=== PATIENT | male | born 2000 | race Caucasian/White ===

== ENCOUNTER 2024-11-17 10:22 | Emergency (ER) | payer OTHER, SELFPAY ==
[2024-11-17 10:27] VITALS: BP 161/93; PULSE 89; RESP 20; TEMP 37.4; O2SAT 100
--- OUTSIDE RECORDS SUMMARY | 2024-11-17 10:27 | XMS_ITS | Referral Summary ---
Author Organization [facility] Address [address] [place] [address] Care Team Providers Care Court Transcriber Name Role Phone Eusebia Lee MD Primary Care Provider [phone] Source Comments [facility],non-owned Affiliates and Associated Physician Practices is amultiple site organization consisting of ambulatory clinics and hospital sitesin [place], [place], [place] and [place]. This disclosure is being madepursuant to the Care Everywhere program and may not contain all information available regarding this patient. Last updated 18.[facility] [employer] Allergies No known active allergies Medications Be aware that medications may not be up to date on this document. Always verify current medications with the patient. No known medications Social History Tobacco Use Types Packs/Day Years Used Date Smoking Tobacco: Never Assessed Sex and Gender Information Value Date Recorded Sex Assigned at Not on file Gender Identity Not on file Sexual Orientation Not on file Plan of Treatment Not on file Care Teams Court Transcriber Relationship Specialty Start Date End Date Eusebia Lee MD [address] [place] [address] PCP - General 08/08/11
--- OUTSIDE RECORDS SUMMARY | 2024-11-17 10:27 | XMS_ITS | Clinical Summary ---
Author Organization [facility] Address [address] [place] [address] Care Team Providers Care Barrel Assembly Inspector Name Role Phone Eusebia Lee MD Primary Care Provider Source Comments [facility],non-owned Affiliates and Associated Physician Practices is amultiple site organization consisting of ambulatory clinics and hospital sitesin [place] and [place]. This disclosure is being madepursuant to the Care Everywhere program and may not contain all information available regarding this patient. Last updated 18.[facility] Allergies No known active allergies Medications Be [...] Orientation Not on file Plan of Treatment Health Maintenance Due Date Last Done Comments HIV SCREENING 2014 HPV VACCINE (1 - Male 3-dose series) 2014 HEPATITIS C SCREENING 07/15/2017 DTAP/TDAP/TD VACCINES (1 - Tdap) 2018 HEPATITIS B VACCINE (1 of 3 - 19+ 3-dose series) 2018 COVID-19 VACCINE (1 - 2023-2 5 season) 2024 INFLUENZA VACCINE (#1) 2024 DEPRESSION SCREENING 10/09/2024 ZOSTER VACCINE (1 of 2) 2049 HIB VACCINE Aged Out No longer eligi ble based on patient's age to complete this topic MENINGOCOCCAL (Group B) VACCINE Aged Out No longer eligible based on patient's age to complete this topic MENINGOCOCCAL VACCINE Aged Out No sg ariela eligible based on patient's age to complete this topic PNEUMOCOCCAL VACCINE Aged Out No long er eligible based on patient's age to complete this topic Care Teams Barrel Assembly Inspector Relationship Specialty Start Date End Date Eusebia Lee MD [address] [place] [address] PCP - General 08/08/11
--- OUTSIDE RECORDS SUMMARY | 2024-11-17 10:27 | XMS_ITS | Continuity of Care Document ---
Author Organization [facility] Address [address] [place] [address] Phone Care Team Providers Care General Agent Name Role Phone Simeon Rodriguez DO Unavailable Unavailable Advance Directives Directive Yes / No Effective Date File Name No Information Encounters Encounter Description Practice Location Reason(s) For Visit Diagnoses Date Provider Providers Copied on Encounter [facility], [address] [place], [place], [id number], tel:[phone] [facility] No Information Jennifer Kevin. [address] [place], [address], . tel: [phone] Family History Family Member Type Diagnosis Age At Onset No Information Payers Payer name Insurance type Covered democrat ID Authoriza titoño(s) [facility] [id number] [facility] [id number] Social History Type Description Quantity Date Captured Comments Sex Male Smoking Status No Information Chief Complaint And Reason For Visit No Information Reason For Referral Reason For Referral No Information History Of Present Illness Encounter Date Complaint History Of Prese nt Illness No Information Functional Status Date Functional Assessmen t No Information Instructions Date Instruction Additional Infor mation No Information Assessments Type Assessment Date No Information Patient Care Teams Name Effective Dates (start - stop) Status Members No Information
--- OUTSIDE RECORDS SUMMARY | 2024-11-17 10:27 | XMS_ITS | Data Portability ---
Author Organization Chika MILLER Address [address] [place] [address] Assessment No assessment recorded. Plan of Treatment Reminders Order Date Submit Date Provider Last Modified By Organization Details Last Modified Time Details Appointments None recorded. Lab HbA1c (hemoglobi n A1c), blood 2015 016 KAIT CHAU, Padma sal Adan, [facility] [address], [place], [address], 6 06:36:38 CBC w/ auto diff 2015 016 [facility] [address], [place], [address], 6 06:36:36 CMP, serum or plasma 2015 016 [facility], [facility] [address], [place], [address], 6 06:36:37 lipid panel, serum 2015 016 KAIT CHAU, Padma sal Ad[address], [address], [place], [address], 6 06:36:37 vitamin D3, 25-hydroxy , serum 2015 016 [facility]IT [facility], [facility], [address], [place], [address], 6 06:36:38 HIV (1+O+2) Ab, serum 2015 016 gerri [facility], [address], [address], [place], [address], 7 14:26:25 vitamin D, 25-hydroxy , total, serum 2017 018 KAIT [facility], [address], [address], [place], [address], 8 06:36:39 HbA1c (hemoglobi n A1c), blood 2017 018 KAIT [facility], [address], [address], [place], [address], 8 06:36:39 lipid panel, serum 2017 018 KAIT [facility], [address], [address], [place], [address], 8 06:36:39 vitamin D, 25-hydroxy , total, serum 2018 019 KAIT [facility], [address], [address], [place], [address], 9 13:13:30 CMP, serum or plasma 2018 019 KAIT [facility], [address], [address], [place], [address], 9 13:13:29 CBC 2018 019 KAIT [facility], [address], [address], [place], [address], 9 13:13:29 TSH, ultra-sens itive, serum 2018 019 [facility], [address] [facility], [address] [facility], [place], [address], 9 13:13:30 lipid panel, serum 2018 019 [facility], [address] [facility], [address], [place], [address], 9 13:13:28 Referral None recorded. Procedures None recorded. Surgeries None recorded. Imaging None recorded. Medication Orders Zithromax Z-Kenneth 250 mg tablet [address] [facility], [address] [place] [address], [address], 9 09:21:21 Flonase Allergy Relief 50 mcg/actuat ion nasal spray,susp ension [address] [facility], [address] [place] [address], [address], 9 09:21:20 Patient TargetsNo targets recorded. Patient Instructions Encounter Date Encounter Id Patient Instructions Last Modified By Organization Details Last Modified Time 09/07/2016 [id number] when your child IS overweight: care instructions [email or web address] Not available 09/07/2016 16:42:00 your child WHO I S overweight: care instructions [email or web address] Not available 09/07/2016 16:41:59 patient health questionnaire modified for adolescents* [id number] Not available 09/24/2016 04:32:50 well child visit 15-17 years [id number] Not available 09/24/2016 04:32:31 11/08/2017 [id number] when your child IS overweight: care instructions csuhre Not available 11/08/2017 17:02:24 your child WHO I S overweight: care instructions csuhre Not available 11/08/2017 17:02:24 11/15/2018 [id number] upper respirator y infection (cold): care instructions ltardino Not available 11/15/2018 09:21:11 Pt said he will check BP periodically and if remains elevated will notify office. States usually high with white coat syndrome. ltardino Not available 11/15/2018 13:14:48 Drink plenty of fluids, Get plenty of rest. Take Tylenol as dir. OTC ltardino Not available 11/15/2018 13:13:23 11/29/2018 [id number] elevated blood pressure: care instructions ltardino Not available 11/29/2018 13:40:54 Reason for Referral None Reported. Results Created Date Observation Date Name Description Value Unit Range Abnormal Flag Note LastModifiedBy Organization Detail LastModifiedTime 10/07/20 16 10/08/2016 CBC w/ auto diff WBC 7.1 x10e3 /uL 3.4-10 .8 Not Available [facility] ([facility]) [address] [place], [address], 10/08/2016 06:36:36 10/07/20 16 10/08/2016 CBC w/ auto diff RBC 4.97 x10e6 /uL 4.14-5 .80 Not Available [facility] ([facility]) [address] [place], [address], 10/08/2016 06:36:36 10/07/20 16 10/08/2016 CBC w/ auto diff hemoglobin 15.6 g/dL 12.6-1 7.7 Not Available [facility] ([facility]) [address] [place], [address], 10/08/2016 06:36:36 10/07/20 16 10/08/2016 CBC w/ auto diff hematocrit 44.6 % 37.5-5 1.0 Not Available [facility] ([facility]) [address] [place], [address], 10/08/2016 06:36:36 10/07/20 16 10/08/2016 CBC w/ auto diff MCV 90 fL 79-97 Not Available [facility] ([facility]) [address] [place], [address], 10/08/2016 06:36:36 10/07/20 16 10/08/2016 CBC w/ auto diff MCH 31.4 pg 26.6-3 3.0 Not Available [facility] ([facility]) [address] [facility], [place], [address], 10/08/2016 06:36:36 10/07/20 16 10/08/2016 CBC w/ auto diff MCHC 35.0 g/dL 31.5-3 5.7 Not Available [facility] ([facility]) [address] [facility], [place], [address], 10/08/2016 06:36:36 10/07/20 16 10/08/2016 CBC w/ auto diff RDW 12.7 % 12.3-1 5.4 Not Available [facility] ([facility]) [address] [facility], [place], [address], 10/08/2016 06:36:36 10/07/20 16 10/08/2016 CBC w/ auto diff platelets 291 x10e3 /uL 150-37 9 Not Available [facility] ([facility]) [address] [facility], [place], [address], 10/08/2016 06:36:36 10/07/20 16 10/08/2016 CBC w/ auto diff neutrophils 60 % Not Available [facility] ([facility]) [address] [facility], [place], [address], 10/08/2016 06:36:36 10/07/20 16 10/08/2016 CBC w/ auto diff lymphs 32 % Not Available [facility] ([facility]) [address] [facility], [place], [address], 10/08/2016 06:36:36 10/07/20 16 10/08/2016 CBC w/ auto diff monocytes 6 % Not Available [facility] ([facility]) [address] [facility], [place], [address], 10/08/2016 06:36:36 10/07/20 16 10/08/2016 CBC w/ auto diff eos 2 % Not Available [facility] ([facility]) [address] [place], [address], 10/08/2016 06:36:36 10/07/20 16 10/08/2016 CBC w/ auto diff basos 0 % Not Available [facility] ([facility]) [address] [place], [address], 10/08/2016 06:36:36 10/07/20 16 10/08/2016 CBC w/ auto diff immature cells SWIM INSTRUCTOR Not Available [facility] ([facility]) [address] [place], [address], 10/08/2016 06:36:36 10/07/20 16 10/08/2016 CBC w/ auto diff neutrophils (absolute) 4.2 x10e3 /uL 1.4-7. 0 Not Available [facility] ([facility]) [address] [place], [address], 10/08/2016 06:36:36 10/07/20 16 10/08/2016 CBC w/ auto diff lymphs (absolute) 2.3 x10e3 /uL 0.7-3. 1 Not Available [facility] ([facility]) [address] [place], [address], 10/08/2016 06:36:36 10/07/20 16 10/08/2016 CBC w/ auto diff monocytes(ab solute) 0.4 x10e3 /uL 0.1-0. 9 Not Available [facility] ([facility]) [address] [place] [address], [address], 10/08/2016 06:36:36 10/07/20 16 10/08/2016 CBC w/ auto diff eos (absolute) 0.2 x10e3 /uL 0.0-0. 4 Not Available [facility] ([facility]) [address] [place], [address], 10/08/2016 06:36:36 10/07/20 16 10/08/2016 CBC w/ auto diff baso (absolute) 0.0 x10e3 /uL 0.0-0. 3 Not Available [facility] ([facility]) [address] [facility], [place], [address], 10/08/2016 06:36:36 10/07/20 16 10/08/2016 CBC w/ auto diff immature granulocytes 0 % Not Available [facility] ([facility]) [address] [facility], [place], [address], 10/08/2016 06:36:36 10/07/20 16 10/08/2016 CBC w/ auto diff immature grans (abs) 0.0 x10e3 /uL 0.0-0. 1 Not Available [facility] ([facility]) [address] [place], [address], 10/08/2016 06:36:36 10/07/20 16 10/08/2016 CBC w/ auto diff NRBC SWIM INSTRUCTOR Not Available [facility] ([facility]) [address] [place], [address], 10/08/2016 06:36:36 10/07/20 16 10/08/2016 CBC w/ auto diff hematology comments: SWIM INSTRUCTOR Not Available [facility] ([facility]) [address] [place], [address], 10/08/2016 06:36:36 10/07/20 16 10/08/2016 CMP, serum or plasm a glucose, serum 98 mg/dL 65-99 Not Available [facility] ([facility]) [address] [place], [address], 10/08/2016 06:36:37 10/07/20 16 10/08/2016 CMP, serum or plasm a BUN 18 mg/dL 5-18 Not Available [facility] ([facility]) [address] [place], [address], 10/08/2016 06:36:37 10/07/20 16 10/08/2016 CMP, serum or plasm a creatinine, serum 0.84 mg/dL 0.76-1 .27 Not Available [facility] ([facility]) [address] [facility] [place], [address], 10/08/2016 06:36:37 10/07/20 16 10/08/2016 CMP, serum or plasm a BUN/creatini ne ratio 21 9-27 Not Available [facility] ([facility]) [address] [facility] [place], [address], 10/08/2016 06:36:37 10/07/20 16 10/08/2016 CMP, serum or plasm a sodium, serum 142 mmol/ L 134-14 4 Not Available [facility] ([facility]) [address] [facility] [place], [address], 10/08/2016 06:36:37 10/07/20 16 10/08/2016 CMP, serum or plasm a potassium, serum 4.7 mmol/ L 3.5-5. 2 Not Available [facility] ([facility]) [address] [facility] [place], [address], 10/08/2016 06:36:37 10/07/20 16 10/08/2016 CMP, serum or plasm a chloride, serum 100 mmol/ L 96-106 Not Available [facility] ([facility]) [address] [place], [address], 10/08/2016 06:36:37 10/07/20 16 10/08/2016 CMP, serum or plasm a calcium, serum 9.7 mg/dL 8.9-10 .4 Not Available [facility] ([facility]) [address] [place] [address], [address], 10/08/2016 06:36:37 10/07/20 16 10/08/2016 CMP, serum or plasm a protein, total, serum 6.6 g/dL 6.0-8. 5 Not Available [facility] ([facility]) [address] [place], [address], 10/08/2016 06:36:37 10/07/20 16 10/08/2016 CMP, serum or plasm a albumin, serum 4.5 g/dL 3.5-5. 5 Not Available [facility] ([facility]) [address] [place], [address], 10/08/2016 06:36:37 10/07/20 16 10/08/2016 CMP, serum or plasm a globulin, total 2.1 g/dL 1.5-4. 5 Not Available [facility] ([facility]) [address] [place], [address], 10/08/2016 06:36:37 10/07/20 16 10/08/2016 CMP, serum or plasm a A/G ratio 2.1 1.1-2. 5 Not Available [facility] ([facility]) [address] [place], [address], 10/08/2016 06:36:37 10/07/20 16 10/08/2016 CMP, serum or plasm a bilirubin, total 0.6 mg/dL 0.0-1. 2 Not Available [facility] ([facility]) [address] [place], [address], 10/08/2016 06:36:37 10/07/20 16 10/08/2016 CMP, serum or plasm a alkaline phosphatase, S 123 IU/L 61-146 Not Available [facility] [address] [facility], [address], 10/08/2016 06:36:37 10/07/20 16 10/08/2016 CMP, serum or plasm a AST (SGOT) 38 IU/L 0-40 Not Available [facility] ([facility] [address] [facility] [place], [address], 10/08/2016 06:36:37 10/07/20 16 10/08/2016 lipid panel , serum cholesterol, total 159 mg/dL 100-16 9 Not Available [facility] ([facility]) [address], [place], [address], 10/08/2016 06:36:37 10/07/20 16 10/08/2016 lipid panel , serum triglyceride s 138 mg/dL 0-89 above high normal Not Available [facility] ([facility]) [address], [place], [address], 10/08/2016 06:36:37 10/07/20 16 10/08/2016 lipid panel , serum HDL cholesterol 41 mg/dL >39 Not Available [facility] ([facility]) [address] [facility], [place], [address], 10/08/2016 06:36:37 10/07/20 16 10/08/2016 lipid panel , serum VLDL cholesterol abhishek 28 mg/dL 5-40 Not Available [facility] ([facility]) [address] [facility], [place], [address], 10/08/2016 06:36:37 10/07/20 16 10/08/2016 lipid panel , serum LDL cholesterol calc 90 mg/dL 0-109 Not Available [facility] ([facility]) [address] [facility], [place], [address], 10/08/2016 06:36:37 10/07/20 16 10/08/2016 lipid panel , serum comment: SWIM INSTRUCTOR Not Available [facility] ([facility]) [address] [facility], [place], [address], 10/08/2016 06:36:37 10/07/20 16 10/08/2016 lipid panel , serum LDL/HDL ratio 2.2 ratio _unit s 0.0-3. 6 LDL/H DL RATIO MEN WOMEN 1/2 AVG.R ISK 1.0 1.5 AVG.R ISK 3.6 3.2 2X AVG.R ISK 6.2 5.0 3X AVG.R ISK 8.0 6.1 Not Available [facility] ([facility]) [address] [facility], [place], [address], 10/08/2016 06:36:37 10/07/20 16 10/08/2016 HbA1c (hemo globi n A1c), blood hemoglobin A1C 5.3 % 4.8-5. 6 PRE-D IABET ES: 5.7 - 6.4 DIABE GALEN: >6.4 GLYCE LAVERNE CONTR OL FOR ADULT S WITH DIABE GALEN: <7.0 Not Available [facility] ([facility]) [address] [facility], [place], [address], 10/08/2016 06:36:38 10/07/20 16 10/08/2016 vitam in D3, 25-hy droxy , serum vitamin D, 25-hydroxy 22.2 NG/mL 30.0-1 00.0 below low normal VITAM IN D DEFIC IENCY HAS BEEN DEFIN ED BY THE INSTI TUTE OF MEDIC INE AND AN ENDOC RINE SOCIE TY PRACT ICE GUIDE LINE A LEVEL OF SERUM 25-OH VITAM IN D LESS THAN 20 NG/ML (1,2) . THE ENDOC RINE SOCIE TY WENT ON TO FURTH ER DEFIN E VITAM IN D INSUF FICIE NCY A LEVEL BETWE EN 21 AND 29 NG/ML (2). 1. IOM (INST ITUTE OF MEDIC INE). 2009. DIETA RY REFER ENCE INTAK ES FOR CALCI UM AND D. BLANCA RAMOS DC: THE NATIO NAL ACADE [facility] PRESS . 2. LAVINIA Cleaning MF, JESSY LUNDBERG [place], JEFF OFF-F ERRAR I HERNANDEZ, ET AL. EVALU ATION , TREAT MENT, AND PREVE NTION OF VITAM IN D DEFIC IENCY : AN ENDOC RINE SOCIE TY CLINI ABHISHEK PRACT ICE GUIDE LINE. JCEM. 2010; 96(7) :1911 -30. Not Available [facility] ([facility]) [address] [facility], [place], [address], 10/08/2016 06:36:38 10/07/20 16 10/08/2016 HIV 1+2 AB + HIV 1 p24 Ag, quali tativ e immun oassa y, serum HIV screen 4TH generation wrfx NON REACTI VE non reacti ve Not Available [facility] ([facility]) [address] [facility], [place], [address], 10/08/2016 06:36:39 12/12/19 18 12/12/2017 lipid panel , serum cholesterol, total 176 mg/dL 100-16 9 above high normal Not Available [facility] ([facility]) [address] [place], [address], 12/12/2017 06:36:38 12/12/19 18 12/12/2017 lipid panel , serum triglyceride s 168 mg/dL 0-89 above high normal Not Available [facility] ([facility]) [address] [place], [address], 12/12/2017 06:36:38 12/12/19 18 12/12/2017 lipid panel , serum HDL cholesterol 39 mg/dL >39 below low normal Not Available [facility] ([facility]) [address] [place], [address], 12/12/2017 06:36:38 12/12/19 18 12/12/2017 lipid panel , serum LDL chol. (direct) 108 mg/dL 0-109 Not Available [facility] ([facility]) [address] [place], [address], 12/12/2017 06:36:38 12/12/19 18 12/12/2017 lipid panel , serum comment: SWIM INSTRUCTOR Not Available [facility] ([facility]) [address] [place], [address], 12/12/2017 06:36:38 12/12/19 18 12/12/2017 HbA1c (hemo globi n A1c), blood hemoglobin A1C 5.1 % 4.8-5. 6 Pre-d iabet es: 5.7 - 6.4 Diabe galen: >6.4 Glyce laverne contr ol for adult s with diabe galen: <7.0 Not Available [facility] ([facility]) [address] [facility], [place], [address], 12/12/2017 06:36:39 12/12/19 18 12/12/2017 HbA1c (hemo globi n A1c), blood estim. avg glu (EAG) 100 mg/dL Not Available [facility] ([facility]) [address] [facility], [place], [address], 12/12/2017 06:36:39 12/12/19 18 12/12/2017 vitam in D, 25-hy droxy , total , serum vitamin D, 25-hydroxy 21.2 NG/mL 30.0-1 00.0 below low normal Vitam in D defic iency has been defin ed by the Insti tute of Medic ine and an Endoc rine Socie ty pract ice guide line as a level of serum 25-OH vitam in D less than 20 ng/mL (1,2) . The Endoc rine Socie ty went on to furth er defin e vitam in D insuf ficie ncy as a level betwe en 21 and 29 ng/mL (2). 1. IOM (Inst itute of Medic ine). 2009. Dieta ry refer ence intak es for calci um and D. Blanca ramos DC: [facility] Press . 2. Lavinia cleaning MF, Jessy lundberg [place], Jeff off-F errar i HERNANDEZ, et al. Evalu ation , treat ment, and preve ntion of vitam in D defic iency : an Endoc rine Socie ty clini abhishek pract ice guide line. JCEM. 2010; 96(7) :1911 -30. Not Available [facility] ([facility]) [address] [facility], [place], [address], 12/12/2017 06:36:39 11/15/19 19 11/16/2018 lipid panel , serum cholesterol, total 207 mg/dL 100-16 9 above high normal Not Available [facility] ([facility]) [address], [place], [address], 11/16/2018 13:13:28 11/15/1911/16/2018 lipid panel , serum triglyceride s 209 mg/dL 0-89 above high normal Not Available [facility] ([facility]) [address], [place], [address], 11/16/2018 13:13:28 11/15/19 19 11/16/2018 lipid panel , serum LDL chol. (direct) 159 mg/dL 0-109 above high normal Not Available [facility] ([facility]) [address] [place], [address], 11/16/2018 13:13:28 11/15/1911/16/2018 lipid panel , serum HDL cholesterol 37 mg/dL >39 below low normal Not Available [facility] ([facility]) [address], [place], [address], 11/16/2018 13:13:28 11/15/1911/16/2018 lipid panel , serum VLDL cholesterol abhishek 42 mg/dL 5-40 above high normal Not Available [facility] ([facility]) [address], [place], [address], 11/16/2018 13:13:28 11/15/1911/16/2018 lipid panel , serum LDL cholesterol calc 128 mg/dL 0-109 above high normal Not Available [facility] ([facility]) [address], [place], [address], 11/16/2018 13:13:28 11/15/1911/16/2018 lipid panel , serum comment: SWIM INSTRUCTOR Not Available [facility] ([facility]) [address] [place], [address], 11/16/2018 13:13:28 11/15/1911/16/2018 lipid panel , serum LDL/HDL ratio 3.5 ratio 0.0-3. 6 LDL/H DL Ratio Men Women 1/2 Avg.R isk 1.0 1.5 Avg.R isk 3.6 3.2 2X Avg.R isk 6.2 5.0 3X Avg.R isk 8.0 6.1 Not Available [facility] ([facility]) [address] [place], [address], 11/16/2018 13:13:28 11/15/19 19 11/16/2018 CMP, serum or plasm a glucose 96 mg/dL 65-99 Not Available [facility] ([facility]) [address] [place], [address], 11/16/2018 13:13:29 11/15/19 19 11/16/2018 CMP, serum or plasm a BUN 18 mg/dL 6-20 Not Available [facility] ([facility]) [address] [place], [address], 11/16/2018 13:13:29 11/15/1911/16/2018 CMP, serum or plasm a creatinine 0.88 mg/dL 0.76-1 .27 Not Available [facility] ([facility]) [address] [place], [address], 11/16/2018 13:13:29 11/15/19 19 11/16/2018 CMP, serum or plasm a eGFR if nonafricn AM 125 mL/mi n/1.7 3 >59 Not Available [facility] ([facility]) [address] [place], [address], 11/16/2018 13:13:29 11/15/19 19 11/16/2018 CMP, serum or plasm a eGFR if africn AM 144 mL/mi n/1.7 3 >59 Not Available [facility] ([facility]) [address] [place] [address], [address], 11/16/2018 13:13:29 11/15/19 19 11/16/2018 CMP, serum or plasm a BUN/creatini ne ratio 20 9-20 Not Available [facility] ([facility]) [address] [facility] [place], [address], 11/16/2018 13:13:29 11/15/1911/16/2018 CMP, serum or plasm a sodium 141 mmol/ L 134-14 4 Not Available [facility] ([facility]) [address] [facility] [place], [address], 11/16/2018 13:13:29 11/15/1911/16/2018 CMP, serum or plasm a potassium 4.6 mmol/ L 3.5-5. 2 Not Available [facility] ([facility]) [address] [facility] [place], [address], 11/16/2018 13:13:29 11/15/1911/16/2018 CMP, serum or plasm a chloride 101 mmol/ L 96-106 Not Available [facility] ([facility]) [address] [place], [address], 11/16/2018 13:13:29 11/15/1911/16/2018 CMP, serum or plasm a carbon dioxide, total 23 mmol/ L 20-29 Not Available [facility] ([facility]) [address] [place], [address], 11/16/2018 13:13:29 11/15/1911/16/2018 CMP, serum or plasm a calcium 9.9 mg/dL 8.7-10 .2 Not Available [facility] ([facility]) [address] [place], [address], 11/16/2018 13:13:29 11/15/1911/16/2018 CMP, serum or plasm a protein, total 7.1 g/dL 6.0-8. 5 Not Available [facility] ([facility]) [address] [place], [address], 11/16/2018 13:13:29 11/15/19 19 11/16/2018 CMP, serum or plasm a albumin 4.7 g/dL 3.5-5. 5 Not Available [facility] ([facility]) [address] [facility] [place], [address], 11/16/2018 13:13:29 11/15/19 19 11/16/2018 CMP, serum or plasm a globulin, total 2.4 g/dL 1.5-4. 5 Not Available [facility] ([facility]) [address] [facility] [place], [address], 11/16/2018 13:13:29 11/15/1911/16/2018 CMP, serum or plasm a A/G ratio 2.0 1.2-2. 2 Not Available [facility] ([facility]) [address] [facility] [place], [address], 11/16/2018 13:13:29 11/15/1911/16/2018 CMP, serum or plasm a bilirubin, total 0.6 mg/dL 0.0-1. 2 Not Available [facility] ([facility]) [address] [facility] [place], [address], 11/16/2018 13:13:29 11/15/1911/16/2018 CMP, serum or plasm a alkaline phosphatase 82 IU/L 39-117 Not Available [facility] ([facility]) [address] [facility] [place], [address], 11/16/2018 13:13:29 11/15/1911/16/2018 CMP, serum or plasm a AST (SGOT) 83 IU/L 0-40 above high normal Not Available [facility] ([facility]) [address] [facility] [place], [address], 11/16/2018 13:13:29 11/15/19 19 11/16/2018 CMP, serum or plasm a ALT (SGPT) 149 IU/L 0-44 above high normal Not Available [facility] ([facility]) [address] [facility], [place], [address], 11/16/2018 13:13:29 11/15/19 19 11/16/2018 CBC WBC 9.2 x10e3 /uL 3.4-10 .8 Not Available [facility] ([facility]) [address] [facility], [place], [address], 11/16/2018 13:13:29 11/15/19 19 11/16/2018 CBC RBC 5.38 x10e6 /uL 4.14-5 .80 Not Available [facility] ([facility]) [address] [facility] [place], [address], 11/16/2018 13:13:29 11/15/19 19 11/16/2018 CBC hemoglobin 16.6 g/dL 13.0-1 7.7 Not Available [facility] ([facility]) [address] [facility] [place], [address], 11/16/2018 13:13:29 11/15/19 19 11/16/2018 CBC hematocrit 49.0 % 37.5-5 1.0 Not Available [facility] ([facility]) [address] [facility] [place], [address], 11/16/2018 13:13:29 11/15/19 19 11/16/2018 CBC MCV 91 fL 79-97 Not Available [facility] ([facility]) [address] [facility] [place], [address], 11/16/2018 13:13:29 11/15/19 19 11/16/2018 CBC MCH 30.9 pg 26.6-3 3.0 Not Available [facility] ([facility]) [address] [facility] [place] [place], [address], 11/16/2018 13:13:29 11/15/19 19 11/16/2018 CBC MCHC 33.9 g/dL 31.5-3 5.7 Not Available [facility] ([facility]) [address] [place], [address], 11/16/2018 13:13:29 11/15/19 19 11/16/2018 CBC RDW 12.7 % 12.3-1 5.4 Not Available [facility] ([facility]) [address] [facility], [place], [address], 11/16/2018 13:13:29 11/15/19 19 11/16/2018 CBC NRBC SWIM INSTRUCTOR Not Available [facility] ([facility]) [address] [facility], [place], [address], 11/16/2018 13:13:29 11/15/19 19 11/16/2018 TSH, ultra -sens itive , serum TSH 1.620 uIU/m L 0.450- 4.500 Not Available [facility] ([facility]) [address] [facility], [place], [address], 11/16/2018 13:13:30 11/15/19 19 11/16/2018 vitam in D, 25-hy droxy , total , serum vitamin D, 25-hydroxy 18.4 NG/mL 30.0-1 00.0 below low normal Vitam in D defic iency has been defin ed by the Insti tute of Medic ine and an Endoc rine Socie ty pract ice guide line as a level of serum 25-OH vitam in D less than 20 ng/mL (1,2) . The Endoc rine Socie ty went on to furth er defin e vitam in D insuf ficie ncy as a level betwe en 21 and 29 ng/mL (2). 1. IOM (Inst itute of Medic ine). 2009. Dieta ry refer ence chris es for calci um and D. Blanca ramos [place]: The [facility] Press . 2. Lavinia cleaning MF, Jessy lundberg [place], Jeff off-F errar i HERNANDEZ, et al. Evalu ation , treat ment, and preve ntion of vitam in D defic iency : an Endoc rine Socie ty clini abhishek pract ice guide line. JCEM. 2010; 96(7) :1911 -30. Not Available [facility] ([facility]) [address] [facility] [place], [address], 11/16/2018 13:13:30 01/16/2001/16/2019 CMP, serum or plasm a glucose 95 mg/dL 65-99 Not Available [facility] ([facility]) [address] [facility] [place], [address], 01/16/2019 06:21:07 01/16/2001/16/2019 CMP, serum or plasm a BUN 17 mg/dL 6-20 Not Available [facility] ([facility]) [address] [facility] [place], [address], 01/16/2019 06:21:07 01/16/2001/16/2019 CMP, serum or plasm a creatinine 0.85 mg/dL 0.76-1 .27 Not Available [facility] ([facility]) [address] [facility] [place], [address], 01/16/2019 06:21:07 01/16/2001/16/2019 CMP, serum or plasm a eGFR if nonafricn AM 126 mL/mi n/1.7 3 >59 Not Available [facility] ([facility]) [address] [facility] [place], [address], 01/16/2019 06:21:07 01/16/2001/16/2019 CMP, serum or plasm a eGFR if africn AM 146 mL/mi n/1.7 3 >59 Not Available [facility] ([facility]) [address] [facility] [place], [address], 01/16/2019 06:21:07 01/16/2001/16/2019 CMP, serum or plasm a BUN/creatini ne ratio 20 9-20 Not Available [facility] ([facility]) [address] [facility] [place], [address], 01/16/2019 06:21:07 01/16/20 19 01/16/2019 CMP, serum or plasm a sodium 143 mmol/ L 134-14 4 Not Available [facility] ([facility]) [address] [place], [address], 01/16/2019 06:21:07 01/16/2001/16/2019 CMP, serum or plasm a potassium 4.6 mmol/ L 3.5-5. 2 Not Available [facility] ([facility]) [address] [place], [address], 01/16/2019 06:21:07 01/16/2001/16/2019 CMP, serum or plasm a chloride 106 mmol/ L 96-106 Not Available [facility] ([facility]) [address] [place], [address], 01/16/2019 06:21:07 01/16/2001/16/2019 CMP, serum or plasm a carbon dioxide, total 22 mmol/ L 20-29 Not Available [facility] ([facility]) [address] [place], [address], 01/16/2019 06:21:07 01/16/2001/16/2019 CMP, serum or plasm a calcium 9.8 mg/dL 8.7-10 .2 Not Available [facility] ([facility]) [address] [place], [address], 01/16/2019 06:21:07 01/16/2001/16/2019 CMP, serum or plasm a protein, total 7.0 g/dL 6.0-8. 5 Not Available [facility] ([facility]) [address] [place], [address], 01/16/2019 06:21:07 01/16/2001/16/2019 CMP, serum or plasm a albumin 4.7 g/dL 3.5-5. 5 Not Available [facility] ([facility]) [address] [place], [address], 01/16/2019 06:21:07 01/16/2001/16/2019 CMP, serum or plasm a globulin, total 2.3 g/dL 1.5-4. 5 Not Available [facility] ([facility]) [address] [facility] [place], [address], 01/16/2019 06:21:07 01/16/2001/16/2019 CMP, serum or plasm a A/G ratio 2.0 1.2-2. 2 Not Available [facility] ([facility]) [address] [facility] [place], [address], 01/16/2019 06:21:07 01/16/2001/16/2019 CMP, serum or plasm a bilirubin, total 0.4 mg/dL 0.0-1. 2 Not Available [facility] ([facility]) [address] [place], [address], 01/16/2019 06:21:07 01/16/2001/16/2019 CMP, serum or plasm a alkaline phosphatase 88 IU/L 39-117 Not Available [facility]) [address] [place], [address], 01/16/2019 06:21:07 01/16/2001/16/2019 CMP, serum or plasm a AST (SGOT) 23 IU/L 0-40 Not Available [facility] ([facility]) [address] [place], [address], 01/16/2019 06:21:07 01/16/2001/16/2019 CMP, serum or plasm a ALT (SGPT) 37 IU/L 0-44 Not Available [facility] ([facility]) [address] [place], [address], 01/16/2019 06:21:07 Result Notes None recorded. Problems Name Problem SNOMED Code Status Onset Date Resolution Date Notes Provider Name and Address Organization Details Recorded Time Vitamin D deficiency 08030606 Active 2018 Ashlynemile Garcia MA gavi, [place] - [facility] 09:00:22 Cellulitis 641377527 Active Ashlyn KAEL Garcia gavi, [place] - [facility] 9 09:00:22 Allergic rhinitis 83734582 Active Ashlyn Salgadofortroc KAEL gavi, [facility] 9 09:00:22 Mild intermittent asthma 020968225 Active Ashlyn SalgadoforthKAEL gavi, [place] - [facility] 9 09:00:22 Problem Notes None recorded. Procedures Surgical History Date Name Laterality Status Provider Name and Address Organization Details Recorded Time Circumcision completed Mai Viramontes [place] - [facility] 08/19/2015 16:16:50 Tonsillectomy completed Ashlyn Garcia [place] - [facility] 11/15/2018 09:05:52 Imaging Results None recorded. Procedure Notes None recorded. Medical Equipment None Reported. Allergies No known drug allergies Medications Name Sig Start Date Stop Date Status Note LastModified by Organization Details LastModified Time clotrimazol e 10 mg marilyn Take 1 tablet 5 times a day by oral route. 2018 active Not Available Not Available Not Avai lable nystatin 100,000 unit/mL oral suspension Take 5 mL 4 times a day by oral route. 11/19 completed Not Available Not Available Not Available cetirizine 10 mg tablet Take 1 tablet every day by oral route at bedtime. 11/15 completed buy otc Not Available Not Available Not Available benzoyl peroxide 5 % topical gel APPLY TOPICALLY ONCE DAILY IN THE MORNING 2013 active Not Available Not Available Not Avai lable Zithromax Z-Kenneth 250 mg tablet TAKE 2 TABLETS (500 MG) BY ORAL ROUTE ONCE DAILY FOR 1 DAY THEN 1 TABLET (250 MG) BY ORAL ROUTE ONCE DAILY FOR 4 DAYS 2018 active Not Available Not Available Not Avai lable Bactroban 2 % topical ointment Apply 1 applicati on 4 times a day by topical route. 2014 active Not Available Not Available Not Avai lable albuterol sulfate HFA 90 mcg/actuati on aerosol inhaler Inhale 2 puff via spacer Q 4 HR PRN FOR WHEEZING by inhalatio n route. 11/15 completed Not Available Not Available Not Available Vitamin D2 1,250 mcg (50,000 unit) capsule Take 1 capsule every week by oral route. 2018 active Not Available Not Available Not Avai lable Vitamin D3 25 mcg (1,000 unit) capsule Take 1 capsule every day by oral route. 2018 active Not Available Not Available Not Avai lable ibuprofen 11/15 completed Not Available Not Available Not Available Flonase Allergy Relief 50 mcg/actuati on nasal spray,suspe nsion [place] 1 spray every day by intranasa l route. 2018 active Not Available Not Available Not Avai lable Vitals Date Recorded Body height Body mass index (BMI) Body weight Heart rate Respiratory rate Body temperature Systolic blood pressure Diastolic blood pressure Provider Name and Address Organization Details Last Updated DateTime 8 180.98 cm 35.6 kg/m2 939363. 64 g 92 /min 20 /min 98.6 [degF] 152 mm[Hg] 72 mm[Hg] Mai Viramontes MA [facility] 8 16:45:26 Date Recorded Body height Body temperature Provider N lula and Address Organization Details Last Updated DateTime 12/11/2017 180.98 cm 98.5 [degF] Jolie Tinajero MA [facility] 12/11/2017 09:09:02 Date Recorded Body height Body mass index (BMI) Percentile per age and sex Body mass index (BMI) Body weight Heart rate Respiratory rate Body temperature Systolic blood pressure Diastolic blood pressure Provider Name and Address Organization Details Last Updated DateTime 9 180.98 cm 99 % 39.5 kg/m2 768756. 26 g 72 /min 16 /min 97.7 [degF] 164 mm[Hg] 100 mm[Hg] Ashlyn Garcia MA [facility] 9 09:03:09 Date Recorded Systolic blood pressure Diastolic blood pressure Provider Name and Address Organization Details Last Updated DateTime 11/15/2018 154 mm[Hg] 98 mm[Hg] Marcial Yi [facility] 11/15/2018 09:18:57 Date Recorded Body height Body mass index (BMI) Body mass index (BMI) Percentile per age and sex Body weight Heart rate Respiratory rate Body temperature Systolic blood pressure Diastolic blood pressure Provider Name and Address Organization Details Last Updated DateTime 9 180.98 cm 38.6 kg/m2 99 % 699433. 56 g 72 /min 16 /min 98 [degF] 142 mm[Hg] 72 mm[Hg] Ashlyn Garcia MA [facility] 9 08:58:57 Date Recorded Body height Body weight Body mass index (BMI) Heart rate Respiratory rate Body temperature Systolic blood pressure Diastolic blood pressure Provider Name and Address Organization Details Last Updated DateTime 6 180.34 cm 359632. 16 g 35.4 kg/m2 80 /min 20 /min 99.3 [degF] 138 mm[Hg] 72 mm[Hg] Mai Viramontes MA [facility] 6 16:22:32 Social History Question Answer Notes LastModified by Organizat ion Details LastModified Time Tobacco Smoking Status Never Smoker Jolie Tinajero MA [facility], [facility] 07/03/2015 15:43:04 Animal Exposure? Yes 2 Dogs [email or web address] Information not available 08/19/2015 Do You Wear A Helmet When Biking? No Information not available 07/03/2015 Are You Or Have You Been Involved With Bullying? No Information not available 07/03/2015 What Is Your Level Of Caffeine Consumption? Occasional Information not available 07/03/2015 What Type Of Foreign Languages Department Chair Do You Use? None Information not available 07/03/2015 What Type Of Diet Are You Following? REGULAR Information not available 07/03/2015 Have There Been Any Changes To Your Family Or Social Situation? No Information not available 07/03/2015 Are There Any Guns Present In Your Home? No Information not available 07/03/2015 What Is Your Home Situation? Both Parents Mom, Dad, And Brother [email or web address] Information not available 08/19/2015 Do You Use Insect Repellent Routinely? Yes Information not available 07/03/2015 Car Seat Type Or Seat Belt? Seat Belt Information not available 07/03/2015 Parent Involvement? Both Parents Involved Information not available 07/03/2015 Riding In Car Front Seat? Yes Information not available 07/03/2015 What Was The Date Of Your Most Recent Tobacco Screening? 11/29/2018 Information not available 05/02/2019 What Is Your Parents' Marital Status? [email or web address] Information not available 08/19/2015 Pool Exposure No Information not available 07/03/2015 What Is The Name Of Your School? [employer] Information not available 07/03/2015 Do You Have Any Siblings? 1 Brother Information not available 07/03/2015 Do You Have Smoke And Carbon Monoxide Detectors In Your Home? Yes Information not available 07/03/2015 Are You Passively Exposed To Smoke? No [email or web address] Information not available 08/19/2015 What Types Of Sporting Activities Do You Participate In? Football, Baseball Information not available 11/08/2017 Do You Use Sunscreen Routinely? Yes Information not available 07/03/2015 Year In School 12 [email or web address] Informatio n not available 11/08/2017 Sex: Unknown Functional Status Question Answer Note LastModified by Organization D etails LastModified Time What is your exercise level? Heavy [email or web address] Information not available 08/19/2015 Mental Status None recorded. Family History Relationship Description Onset Age of this Age Resolved Age Notes LastModified by Organization Details LastModified Time Paternal Grandmother Diabetes mellitus [email or web address] Not available 08/09 16:16:50 Maternal Grandmother Lupus erythematosu s [email or web address] Not available 08/11 16:17:56 Maternal Grandmother Rheumatoid arthritis [email or web address] Not available 08/11 16:18:17 Maternal Grandmother Family history of malignant neoplasm [email or web address] Not available 08/11 16:18:40 Father No current problems or disability [email or web address] Not available 11/08 16:42:23 Father Diabetes mellitus [email or web address] Not available 2018 09:05:08 Mother No current problems or disability [email or web address] Not available 11/08 16:42:23 Medical History Condition Response Blood Diseases N Depression N Developmental or Behavioral Disorders N Premature N Anxiety Disorder N Muscle, Joint, or Bone Problems N Vision or Eye Problems N Head Injury/Concussion N Cancer N ADHD N Bladder or Kidney Problems N Headaches N Ear or Hearing Problems N Thyroid Problems N Skin Problems N Anemia N Constipation N Diabetes N Bedwetting N Seizures/Epilepsy N Heart Problems/Murmur N Asthma N Allergies N Chicken Pox N Autism Spectrum Disorder (ASD) N Immunizations Vaccine Type Date Status Note Provider Nam e and Address Organization Details Recorded Time HPV9 6 completed Not Available [facility] 10/26/2019 02:44:54 Influenza, split virus, quadrivalent, PF 6 completed Not Available [facility] 10/26/2019 02:49:47 Hep B, adolescent or pediatric 0 completed [place]AEL [place] [facility] 11/29/2018 09:00:30 IPV 0 [place] [facility] 11/29/2018 09:00:30 Hib, unspecified formulation 1 completed [place] [facility] 11/29/2018 09:00:30 Tdap 1 [place] [facility] 11/29/2018 09:00:30 DTaP 0 [place] [facility] 11/29/2018 09:00:30 pneumococcal conjugate PCV 7 0 [place] [facility] 11/29/2018 09:00:30 IPV 1 [place] [facility] 11/29/2018 09:00:29 DTaP 0 [place] [facility] 11/29/2018 09:00:30 pneumococcal conjugate PCV 7 0 [place] [facility] 11/29/2018 09:00:30 DTaP 9 [place] [facility] 11/29/2018 09:00:30 IPV 4 completed Ashlyn Radha[place] [facility] 11/29/2018 09:00:30 meningococcal MCV4, unspecified formulation 1 completed Ashlyn Radha[place] [facility] 11/29/2018 09:00:30 HPV, quadrivalent 4 completed Ashlyn Radha[place] [facility] 11/29/2018 09:00:29 varicella 1 completed Ashlyn Radha[place] [facility] 11/29/2018 09:00:30 Hib, unspecified formulation 0 completed Ashlyn Radha[place] [facility] 11/29/2018 09:00:30 DTaP 1 completed Ashlyn RadhaKAEL [place] [facility] 11/29/2018 09:00:30 Hep A, ped/adol, 2 dose 1 completed Ashlyn [place] [facility] 11/29/2018 09:00:30 Hep B, adolescent or pediatric 1 completed Ashlyn RadhaKAEL [place] [facility] 11/29/2018 09:00:30 MMR 0 completed Ashlynemile [place] [facility] 11/29/2018 09:00:30 MMR 4 completed Ashlyn [place]haKAEL [place] [facility] 11/29/2018 09:00:30 IPV 9 completed Ashlyn Radha[place] [facility] 11/29/2018 09:00:30 Hep A, ped/adol, 2 dose 8 completed Ashlyn Radha[place] [facility] 11/29/2018 09:00:30 DTaP 4 completed Ashlyn Radha[place] [facility] 11/29/2018 09:00:30 varicella 0 completed Ashlyn Radha[place] [facility] 11/29/2018 09:00:30 Hep B, adolescent or pediatric 0 completed Ashlynemile [place] [facility] 11/29/2018 09:00:30 pneumococcal conjugate PCV 7 1 completed Ashlyn [place]AEL [place] [facility] 11/29/2018 09:00:30 Hib, unspecified formulation 9 completed Ashlyn SalgadoKAEL [place] [facility] 11/29/2018 09:00:30 meningococcal B, OMV 8 completed Not Available [facility] 10/26/2019 02:34:49 meningococcal B, OMV 8 completed Not Available [facility] 10/26/2019 02:35:21 HPV9 5 completed Not Available [facility] 10/26/2019 02:43:38 Meningococcal MCV4O 5 completed Not Available [facility] 10/26/2019 02:31:36 Influenza, split virus, quadrivalent, PF 5 completed Not Available [facility] 10/26/2019 02:32:08 Past Encounters Encounter ID Performer Location Encounter Start Date Encounter Closed Date Diagnosis/Indication Diagnosis SNOMED-CT Code Diagnosis ICD10 Code Diagnosis Note [id number] DANIS Hernandez (Peds) [address] [place] [address] 07/03/2015 15:20:36 07/03/2015 17:43:16 Cellulitis [id number] Keep area clean. Start bactroban tid [id number] Eusebia Cole (Peds) [address] [place] [address] 08/19/2015 15:53:02 08/19/2015 17:49:22 Well child 152632476 Z00.121 balanced diet and exercise 1 hr, sleep 10 hr, good hygiene, accident prevention , testicle self exam dental hygiene, see dentist q 6-12m. Allergic rhinitis 966742 04 J30.9 Mild inter mittent asthma 128087943 J45.20 albuterol prn, instruct how to use it, keep diary of usage, contact if not better, or frequent wheezes smoke free, no perfumes PEFR 450, asthma action plan [id number] Eusebia Cole (Peds) [address] [place] [address] 09/07/2016 15:26:24 09/09/2016 17:08:30 Well child 972679937 Z00.129 balanced diet and exercise 1 hr, sleep 10 hr, good hygiene, accident prevention , testicle self exam dental hygiene, see dentist q 6-12m. Obesity 669371361 E66.9 discuss about diet and exercise, sleep 10 hr, good hand hygiene, no biting fingernail s, no weight gain, drink more water, milk 2 cups/d 5-2-1-0 message discussed [id number] MD Yeni Weinsteinhalto (Peds) [address] [place] [address] 11/08/2017 16:31:55 11/08/2017 17:05:50 Well child 917605297 Z00.129 discussed routine adolescent carediscus sed safety and school performanc ediscussed healthy weight Obesity 516602648 E66.9 discussed better weight management with focusing on dietary control (pt exercises regularly) Hypertensive disorder 38 530121 I10 elevated systolic BP. discussed dietary management . will check BP once a week at school. RTC 1 month with results and for recheck with weight. [id number] KAEL Macias (Peds) [address] [place] [address] 12/11/2017 08:27:08 12/11/2017 14:41:47 Active or passive immunization 614537754 Z23 [id number] Marcial Kelly 14 IM [address] [facility] [place] [address] 11/15/2018 08:41:38 11/15/2018 16:27:06 Upper respiratory infection 91882562 J06.9 Adult heal th examination 066468547 Z00.00 Vitamin D deficiency 347 46386 E55.9 [id number] Marcial Kelly 14 IM [address] [facility] [place] [address] 11/29/2018 08:43:07 11/30/2018 10:38:36 Elevated blood-pressure reading without diagnosis of hypertension 904874887 R03.0 BP improved Health Concerns Section Related Observation LastModified by Organization Detai ls LastModified Time None Recorded Concern Status LastModified by Organization Details LastModified Time None Recorded Advance Directives Directive None Recorded Payers Encounter Date Sequence Insurance Name Policy Number Policy Duff Covered Member ID Duff Member ID Guarantor Name 09/07/2016 1 *SELF PAY* [facility] 11/08/2017 2 *SELF PAY* [facility] 11/15/2018 2 *SELF PAY* [facility] 11/15/2018 1 [place] [id number] [facility] [id number] [address] [facility] 11/29/2018 2 *SELF PAY* [facility] 11/29/2018 1 [place] [id number] [facility] [id number] [address] [facility] Notes Date Note Type Note Provider Name and Address Organization Details Recorded Time 6 text/html here for wcc, play sports, good in school, denied sex, drug,alc. Eusebia gatica [facility] 09/07/2016 16:46:33 8 text/html Pt with small tear in back of shoulder. was cleared by Sports medicine after cortisone shot. no albuterol use in the past year or two. does not have inhaler. Lonny Baltazar MD Attn: Accounting,[address] [place], [address], [facility] 11/08/2017 17:03:14 9 text/html Generic HPI TemplateReported bypatient.Notes:Here to est new PCP C/o URI symptoms X 1 week OTC not helping Marcial gatica [facility] 11/15/2018 13:16:00 9 text/html Generic HPI TemplateReported bypatient.Notes:F/u on BP States he is feeling much better Marcial gatica [facility] 11/29/2018 13:41:15
--- OUTSIDE RECORDS SUMMARY | 2024-11-17 10:27 | XMS_ITS | Clinical Summary ---
Author Organization [facility] Address [address] [place] [address] Phone Care Team Providers Care Lap Runner Name Role Phone Reuben Duvall MD Primary Care Provider [phone] Allergies Active Allergy Reactions Criticality Noted Date Comments Albuterol Unknown 06/16/2022 Childhood. Fiance denies allergy; states he has had albuterol in the past with no issues Medications cetirizine (ZyrTEC) 10 MG TabletIndications :Seasonal allergies Take 1 Tablet by mouth daily. 90 Tablet 3 2 Active montelukast (SINGULAIR) 10 MG TabletIndications :Seasonal allergies Take 1 Tablet by mouth every evening. 90 Tablet 3 2 Active albuterol 108 (90 Base) MCG/ACT Aerosol SolutionIndicatio ns:Acute cough take 2 Puffs by inhalation every 4 hours as needed for Wheezing or Cough. 8 g 2 Active ibuprofen (MOTRIN) 600 MG Tablet Take 1 Tablet by mouth every 8 hours. 30 Tablet 3 Active fluticasone (FLONASE) 50 MCG/ACT SuspensionIndicat ions:Seasonal allergies 2 Sprays by Nasal route daily. Take two sprays in each nostril. Use this starting prior to the times of year when congestion happens. 9.9 mL 3 3 Active amLODIPine (NORVASC) 5 MG TabletIndications :Primary hypertension Take 1 Tablet by mouth daily. 90 Tablet 4 Active Active Problems Problem Noted Date Diagnosed Date Mild intermittent asthma 07/31/2023 Immunizations Immunization Administration Dates Next Due Covid-19, Mrna, Lnp-s, Pf, 1 00 Mcg Or 50 Mcg Dose (MODERNA) 08/13/2021,07/02/2021 DTAP VACCINE 05/25/2004, 1,03/22/2000,12/28,1999 Hepatitis A Vaccine, Pediatric/adolescent, 2 Dose Schedule 05/11/2011,12/21/2007 Hepatitis A Vaccine,unspecif ied Formulation 12/21/2007 Hepatitis A, Pediatric, Unsp ecified Formulation 05/11/2011 Hepatitis B Vaccine, Pediatric/adolescent 02/07/2001,03/22/2000,1999 Hib Vaccine,unspecified Formulation 02/07/2001,0 1999,1999 Human Papillomavirus (HPV) 9 -valent Vaccine 09/07/2016,08/19/2015 Human Papillomavirus Vaccine (HPV), quadrivalent 08/06/2014 Inactivated Polio Vaccine 05/25/2004,11/2000,1999,09/30 Influenza Vaccine 07/30/2012 Influenza Vaccine, Quadrivalent, PF /,08/19/2015,08/06/2014,07/26 Influenza Vaccine,unspecifie d Formulation 07/31/2003 Influenza, Seasonal, Injecta ble, Undefined 08/05/2011 MMR Vaccine 03/12/2004,07/26/2000 Meningococcal Group B OMV 12/11/2017,11/08/2017 Meningococcal MCV4, Unspecif ied Formulation 10/13/2010 Meningococcal MCV4O 08/19/2015 Pneumococcal Vaccine Peds - 7 Valent 02/07/2001, 07/26/2000,05/29/2000 TDAP Vaccine 09/08/2023,10/13/2010 Varicella Vaccine Live 10/13/2010,07/26/2000 Family History Medical History Relation Name Comments Diabetes Father No Known Problems Maternal Grandfather Breast Cancer Maternal Grandmother Lupus Maternal Grandmother Rheumatoid Arthritis Maternal Grandmother No Known Problems Mother Alcohol Abuse Paternal Grandfather Cancer Paternal Grandmother liver Diabetes Paternal Grandmother Relation Name Status Comments Father Alive Maternal Grandfather Maternal Grandmother Alive Mother Alive Paternal Grandfather Paternal Grandmother Social History Tobacco Use Types Packs/Day Years Used Date Smoking Tobacco: Never Smokeless Tobacco: Never Tobacco Cessation:Counseling Given: Yes Alcohol Use Standard Drinks/Week Comments Yes 0 (1 standard drink = 0.6 oz pur e alcohol) [facility] Utilities Answer Date Recorded In the past 12 months has th e electric, gas, oil, or water company threatened to shut off services in your home? No 01/04/2024 Social Connection and Isolation Panel [NHANES] A nswer Date Recorded In a typical week, how many times do you talk on the phone with family, friends, or neighbors? Twice a week 01/04/2024 How often do you get together with friends or re latives? Once a week 01/04/2024 How often do you attend quaker or mormon serv ices? Never 01/04/2024 Do you belong to any clubs o r organizations such as quaker groups, unions, fraternal or athletic groups, or school groups? No 01/04/2024 How often do you attend meet ings of the clubs or organizations you belong to? Never 01/04/2024 Are you , , di vorced, , never , or living with a partner? 01/04/2024 AUDIT-C Answer Date Recorded Q1: How often do you have a drink containing alc ohol? 2-4 times a month 01/04/2024 Q2: How many drinks containi ng alcohol do you have on a typical day when you are drinking? 3 or 4 01/04/2024 Q3: How often do you have si x or more drinks on one occasion? Monthly 01/04/2024 Overall Financial Resource Strain (CARDIA) Answe r Date Recorded How hard is it for you to pa y for the very basics like food, housing, medical care, and heating? Not very hard 01/04/2024 PHQ-2 Answer Date Recorded Total Score - Questions 1-9 0 0 05/2022 [facility] - Occupational Stress Questionnaire Answer Date Recorded Do you feel stress - tense, restless, nervous, or anxious, or unable to sleep at night because your mind is troubled all the time - these days? Only a little 01/04/2024 Exercise Vital Sign Answer Date Recorde d On average, how many days pe r week do you engage in moderate to strenuous exercise (like a brisk walk)? 4 days 01/04/2024 On average, how many minutes do you engage in exercise at this level? 30 min 01/04/2024 Hunger Vital Sign Answer Date Recorded Within the past 12 months, y ou worried that your food would run out before you got the money to buy more. Never true 01/04/20 24 Within the past 12 months, t he food you bought just didn't last and you didn't have money to get more. Never true 01/04/2024 PRAPARE - Transportation Answer Date Re corded In the past 12 months, has l ack of transportation kept you from medical appointments or from getting medications? No 12/08 In the past 12 months, has l ack of transportation kept you from meetings, work, or from getting things needed for daily living? No 01/04/2024 Housing Stability Vital Sign Answer Ej e Recorded In the last 12 months, was t here a time when you were not able to pay the mortgage or rent on time? No 01/04/2024 In the last 12 months, how many places have you lived? 1 01/04/2024 In the last 12 months, was t here a time when you did not have a steady place to sleep or slept in a penitentiary (including now)? No 01/04/2024 Sexually Active Control Partners Comments Yes Sex and Gender Information Value Date Recorded Sex Assigned at Not on file Legal Sex Male 12:26 AM CDT Gender Identity Not on file Sexual Orientation Not on file Last Filed Vital Signs Vital Sign Reading Time Taken Comments Blood Pressure 138/86 01/04/2024 2:46 PM CDT Pulse 90 01/04/2024 2:46 PM CDT Temperature 36.3 C (97.3 F) 01/04/2024 2:46 PM CDT Respiratory Rate 16 01/04/2024 2:46 PM CDT Oxygen Saturation 98% 01/04/2024 2:46 PM CDT Inhaled Oxygen Concentration - - Weight 138.8 kg (306 lb) 01/04/2024 2:46 PM CDT Height 182.9 cm (6') 01/04/2024 2:46 PM CDT Body Mass Index 41.5 01/04/2024 2:46 PM CDT Plan of Treatment Health Maintenance Due Date Last Done Comments Hepatitis C Virus (HCV) Screening 1999 Pneumococcal Immunization Combined (1 of 2 - PCV) 2018 02/07/2001, 07/26/2000, 05/29/2000 DTaP/Tdap/Td Immunization (8 - Td or Tdap) 09/08/2033 09/08/2023, 10/13/2010, 05/25/2004, Additional history exists Respiratory Syncytial Virus (RSV) Immunization (Adult) (1 - 1-dose 75+ series) 2074 Hepatitis B Immunization Completed 001, 03/22/2000, 1999 Meningococcal Immunization (ACWY) Completed 08/19/2015, 10/13/2010 Human Papillomavirus (HPV) Immunization Completed 09/07/2016, 08/19/2015, 08/06/2014 Influenza Immunization Discontinued 6, 08/19/2015, 08/06/2014, Additional history exists Meningococcal B Immunization Discontinued 12/11/2017, 11/08/2017 SARS-COV-2 Immunization Discontinued 08/13/2021, 07/02 Rotavirus Immunization Aged Out No lo nger eligible based on patient's age to complete this topic Insurance [facility] Care Teams Lap Runner Relationship Specialty Start Date End Date Reuben Duvall MD PCP - General Family Medicine 06/16/22
--- OUTSIDE RECORDS SUMMARY | 2024-11-17 10:27 | XMS_ITS | Patient Health Summary ---
Author Organization [facility] Address [address] [place] [address] Care Team Providers Care Lab Animal Technician Name Role Phone Eusebia Lee MD Primary Care Provider [phone] Note from [facility],non-owned Affiliates and Associated Physician Practices is amultiple site organization consisting of ambulatory clinics and hospital sitesin [place], [place], [place] and [place]. This disclosure is being madepursuant to the Care Everywhere program and may not contain all information available regarding this patient. Last updated 18.[facility] Allergies No known active allergies Medications Be [...] on file Sexual Orientation Not on file Procedures * XR KNEE LEFT 3VW(Performed 08/22/2011) Performed for Knee pain Results * XR LEFT KNEE AP LAT AND PATELLA (08/22/2011 10:13 AM MATERIAL ENGINEER) Anatomical Region Laterality Modality Lower Extremity Radiographic Ayde ging 08/22/2011 10:2 8 AM MATERIAL ENGINEER Impressions 08/23/2011 9:03 AM MATERIAL ENGINEER Small joint effusion. No visible fracture. D: Simeon Guadalupe M.D. Narrative 08/23/2011 9:03 AM MATERIAL ENGINEER Left knee, 3 views 08/22/2011 History: Pain in joint, lower leg No prior studies are available for comparison. AP, lateral, and sunrise views of the knee were obtained. There is no acute fracture or dislocation. The knee is well aligned. There is a small joint effusion. Procedure Note Jordan Jefferson A - 08/23/2011 Left knee, 3 views 08/22/2011 History: Pain in joint, lower leg No prior studies are available for comparison. AP, lateral, and sunrise views of the knee were obtained. There is no acute fracture or dislocation. The knee is well aligned. There is a small joint effusion. IMPRESSION Small joint effusion. No visible fracture. D: Simeon Guadalupe M.D. [facility] Care Teams Lab Animal Technician Relationship Specialty Start Date End Date Eusebia Lee MD [address] [place] [address] [place] [phone] PCP - General 08/08/11
--- OUTSIDE RECORDS SUMMARY | 2024-11-17 10:27 | XMS_ITS | Clinical Summary ---
Author Organization [facility] Address [address] [place] [address] Care Team Providers Care Business Center Attendant Name Role Phone Reuben Duvall MD Primary Care Provider [phone] Allergies No known active allergies Medications ibuprofen (ADVIL,MOTRIN) 800 mg tablet Take 1 tablet (800 mg total) by mouth every 6 (six) hours as needed for pain Active cetirizine 10 mg capsule Active methylPREDNISol one (Medrol, Kenneth,) 4 mg DosepackIndicat ions:Bronchitis follow package directions 1 packet 3 Active Additional Information Patient not taking.Reported on 10/09/2024 albuterol HFA (PROVENTIL HFA,VENTOLIN HFA,PROAIR HFA) 90 mcg/actuation inhalerIndicati ons:Bronchitis Inhale 2 puffs every 6 (six) hours as needed for wheezing 1 each 3 Active Additional Information Patient not taking.Reported on 10/09/2024 amLODIPine (NORVASC) 5 mg tablet Take 1 tablet (5 mg total) by mouth daily 4 Active albuterol HFA (PROVENTIL HFA,VENTOLIN HFA,PROAIR HFA) 90 mcg/actuation inhalerIndicati ons:Shortness of breath Inhale 2 puffs every 4 (four) hours as needed for wheezing or shortness of breath 1 each 5 Active Active Problems Problem Noted Date Diagnosed Date Allergic rhinitis 10/09/2024 Cellulitis 10/09/2024 Mild intermittent asthma 07/31/2023 Vitamin D deficiency 11/18/2018 Encounters Date Type Department Care Team Description 10/09/2024 11:45 AM RUG SIZER Office Visit [facility] [address] [place] [address] Brionna Santiago, FAITH Bacterial sinusitis (Primary Dx); Sore throat; Acute suppurative otitis media of both ears without spontaneous rupture of tympanic membranes, recurrence not specified; Shortness of breath; Elevated blood pressure reading in office with diagnosis of hypertension 10/01/2024 Orders Only [facility] [address] [place] [address] Unknown, Notinfile from Last 3 Months Surgical History Surgery Date Site/Laterality Comments TONSILECTOMY, ADENOIDECTOMY, BILATERAL MYRINGOTOMY AND TUBES 2003 Medical History Medical History Date Comments Hx Other Medical 2000 tubes in ears Asthma Asthma Family History Medical History Relation Name Comments Cancer Other 1 Family history of Cancer; Diabetes Other 2 Family history of Diabetes mellitus; Hypertension Other 3 Family history of Hypertension; Relation Name Status Comments Other 1 Other 2 Other 3 Social History Tobacco Use Types Packs/Day Years Used Date Smoking Tobacco: Never Smokeless Tobacco: Never Tobacco Cessation:Counseling Given: Not Answered Alcohol Use Standard Drinks/Week Comments No 0 (1 standard drink = 0.6 oz pur e alcohol) Sex and Gender Information Value Date Recorded Sex Assigned at Not on file Legal Sex Male 12:21 PM RUG SIZER Gender Identity Male 10/13/2021 10:23 AM RUG SIZER Sexual Orientation Not on file Obstetrics History Last Filed Vital Signs Vital Sign Reading Time Taken Comments Blood Pressure 156/72 10/09/2024 11:17 AM RUG SIZER Pulse 109 10/09/2024 11:17 AM RUG SIZER Temperature 36.6 C (97.8 F) 10/09/2024 11:17 AM RUG SIZER Respiratory Rate 16 10/09/2024 11:17 AM RUG SIZER Oxygen Saturation 98% 10/09/2024 11:17 AM RUG SIZER Inhaled Oxygen Concentration - - Weight 130.2 kg (287 lb) 10/09/2024 11:17 AM RUG SIZER Height 182.9 cm (6') 10/09/2024 11:17 AM RUG SIZER Body Mass Index 38.92 10/09/2024 11:17 AM RUG SIZER Plan of Treatment Health Maintenance Due Date Last Done Comments Depression Screening 1999 Hepatitis C Screening 1999 Pneumococcal vaccine <65 (1 of 1 - PPSV23 or PCV20) 2005 02/07/2001, 07/26/2000, 05/29/2000 Regular Well Visit/Exam 18-64 2017 Covid-19 Vaccine (3 - 2023-2 5 season) 2024 08/13/2021, 07/02/2021 Influenza Vaccine (#1) 2024 6, 08/19/2015, 08/06/2014, Additional history exists DTaP/Tdap/Td Vaccine (8 - Td or Tdap) 09/08/2033 09/08/2023, 10/13/2010, 05/25/2004, Additional history exists Varicella Vaccines Completed 10/13/2010, 07/26/2000 HPV Vaccines Completed 09/07/2016, 08/09, 08/06/2014 Procedures Procedure Name Priority Date/Time Associated Diagnosis Comments COVID-19 POC Routine 10/09/2024 11:41 AM RUG SIZER Sore throat Bacterial sinusitis POCT RAPID STREP Routine 10/09/2024 11:3 8 AM RUG SIZER Sore throat Bacterial sinusitis POCT INFLUENZA A/B Routine 10/09/2024 11 :38 AM RUG SIZER Sore throat Bacterial sinusitis SURGICAL PATHOLOGY Routine 10/01/2024 10 :30 AM RUG SIZER from Last 3 Months Results * COVID-19 POC (10/09/2024 11:41 AM RUG SIZER) COVID-19 Ag POC (BD Veritor) Presumptive Negative Presumptive Negative, Invalid [facility] Nasal 10/09/2024 11:4 1 AM RUG SIZER us Brionna Santiago NP POINT OF CARE TEST ORDERABLES Fi nal Result [facility] [address] [place] [address] * POCT influenza A/B (10/09/2024 11:38 AM RUG SIZER) Rapid Influenza A Ag Negative Negative, Invalid Rapid Influenza B Ag Negative Negative, Invalid Nasal 10/09/2024 11:3 8 AM RUG SIZER us Brionna Santiago [employer] POINT OF CARE TEST ORDERABLES Fi nal Result * POCT rapid strep A (10/09/2024 11:38 AM RUG SIZER) Rapid Strep A, POC Negative Negative Swab 10/09/2024 11:3 8 AM RUG SIZER us Brionnaalba Santiago [employer] POINT OF CARE TEST ORDERABLES Fi nal Result * Surgical pathology (10/01/2024 10:30 AM RUG SIZER) Skin, shave biopsy 10/01/2024 10:30 AM RUG SIZER 10/03/2024 8:08 AM RUG SIZER Narrative 10/04/2024 1:28 PM RUG SIZER EPIC results best viewed via link to PDF [facility] [address] [place] [address], [address], [place] [address] [email or web address] Note to Patients: This report may contain a detailed description of human tissue sent by a health care provider to the laboratory for pathologic evaluation. The content of this report is essential for diagnosis and may provide important critical findings. This information may be unfamiliar to patients to review without a medical professional present. It is advised that the patient review this report in the presence of a health care provider who can answer questions and explain the details. FINAL REPORT Patient Information: PATIENT NAME: EL PEARSON SEX: M : 2000 (Age: 24) Specimen Information: COLLECTED: 10/01/2024 RECEIVED: 10/03/2024 REPORTED: 10/04/2024 Submitting Physician Information: Paula Page, [facility] [place] [address], DERMATOPATHOLOGY REPORT RESULTS DIAGNOSIS: SKIN, LEFT MEDIAL UPPER BACK, SHAVE BIOPSY: COMPOUND MELANOCYTIC NEVUS exr/ajrr By this signature, I attest that the above diagnosis is based upon my personal examination of the slides(and/or other material indicated in the diagnosis). Abdon Zheng M.D. Report Electronically Reviewed and Signed Out By Abdon Zheng M.D. 10/04/2024 13:28:57 CLINICAL INFORMATION NEOPLASM OF UNCERTAIN BEHAVIOR VS DYSPLASTIC NEVUS SPECIMEN DATA MICROSCOPIC DESCRIPTION: Enlarged monomorphous melanocytes are arranged as solitary units and nests at the dermo-epidermal junction and as uniform nests, cords and strands within the dermis. (D22.9) GROSS DESCRIPTION: Received in a formalin-containing bottle is a superficial fragment of pale kahn, finely scaling, semi-translucent skin measuring 0.6 by 0.5 by 0.1 cm. The surgical margin is inked blue.The specimen bears a brown, centrally located, poorly circumscribed, flat area measuring 0.4 by 0.3 cm. The specimen is sectioned into 2 pieces and submitted entirely in a single cassette. Due to shrinkage, measurements may be different than those at the time of procedure. [facility] ICD-9 A; ZSD.407 Clerical Data A; 87256 The characteristics of special, immunohistochemical, and immunofluorescence stains and in-situ hybridization tests performed by the [facility] were deemed acceptable in ongoing quality review specialist measures and in compliance with regulations drawn from the Clinical Laboratory Improvement Act tk2455 (CLIA '88). Control reactions for all stains performed were deemed adequate and appropriate by a pathologist prior to evaluation of patient tissue. Some diagnoses were rendered with the assistance of laboratory-developed tests utilizing analyte-specific reagents; the performance characteristic of these tests were determined by [facility] and are not cleared or approved by the [place] Food an Drug administration. Laboratory developed test may only be performed in a facility that is certified by the [facility] as a high-complexity laboratory under CLIA '88. These tests are used for clinical purposes and are not investigational. us Notinfile Unknown LAB PATHOLOGY ORDERABLES Final Result from Last 3 Months Insurance CHOICE PLUS CHOICE PLUS CHOICE PLUS Care Teams Business Center Attendant Relationship Specialty Start Date End Date Reuben Duvall MD [address] [place] [address] PCP - General Family Medicine 01/19/23
--- OUTSIDE RECORDS SUMMARY | 2024-11-17 10:27 | XMS_ITS | Referral Summary ---
Author Organization [facility] Building [facility] Address [address] [place] [address] Care Team Providers Care Tomato Paste Maker Name Role Phone Reuben Duvall MD Primary Care Provider [phone] Encounters Date Type Department Care Team Description 10/09/2024 11:45 AM MANAGER EXPORT Office Visit [facility] [place] [address] [place] [address] Brionna Santiago, FAITH Bacterial sinusitis (Primary Dx); Sore throat; Acute suppurative otitis media of both ears without spontaneous rupture of tympanic membranes, recurrence not specified; Shortness of breath; Elevated blood pressure reading in office with diagnosis of hypertension 10/01/2024 Orders Only [facility] [address] [place] [address] Unknown, Notinfile from Last 3 Months Allergies No known active allergies Medications ibuprofen [...] intermittent asthma 07/31/2023 Vitamin D deficiency 11/18/2018 Social History Tobacco Use Types Packs/Day Years Used Date Smoking Tobacco: Never Smokeless Tobacco: Never Tobacco Cessation:Counseling Given: Not Answered Alcohol Use Standard Drinks/Week Comments No 0 (1 standard drink = 0.6 oz pur e alcohol) Sex and Gender Information Value Date Recorded Sex Assigned at Not on file Legal Sex Male 12:21 PM MANAGER EXPORT Gender Identity Male 10/13/2021 10:23 AM MANAGER EXPORT Sexual Orientation Not on file Last Filed Vital Signs Vital Sign Reading Time Taken Comments Blood Pressure 156/72 10/09/2024 11:17 AM MANAGER EXPORT Pulse 109 10/09/2024 11:17 AM MANAGER EXPORT Temperature 36.6 C (97.8 F) 10/09/2024 11:17 AM MANAGER EXPORT Respiratory Rate 16 10/09/2024 11:17 AM MANAGER EXPORT Oxygen Saturation 98% 10/09/2024 11:17 AM MANAGER EXPORT Inhaled Oxygen Concentration - - Weight 130.2 kg (287 lb) 10/09/2024 11:17 AM MANAGER EXPORT Height 182.9 cm (6') 10/09/2024 11:17 AM MANAGER EXPORT Body Mass Index 38.92 10/09/2024 11:17 AM MANAGER EXPORT Plan of Treatment Not on file Procedures Procedure Name Priority Date/Time Associated Diagnosis Comments COVID-19 POC Routine 10/09/2024 11:41 AM MANAGER EXPORT Sore throat Bacterial sinusitis POCT RAPID STREP Routine 10/09/2024 11:3 8 AM MANAGER EXPORT Sore throat Bacterial sinusitis POCT INFLUENZA A/B Routine 10/09/2024 11 :38 AM MANAGER EXPORT Sore throat Bacterial sinusitis SURGICAL PATHOLOGY Routine 10/01/2024 10 :30 AM MANAGER EXPORT from Last 3 Months Results * COVID-19 POC (10/09/2024 11:41 AM MANAGER EXPORT) COVID-19 Ag POC (BD Veritor) Presumptive Negative Presumptive Negative, Invalid [facility] Nasal 10/09/2024 11:4 1 AM MANAGER EXPORT us Brionna Santiago IT SYSTEMS ANALYST CONSULTANT POINT OF CARE TEST ORDERABLES Fi nal Result [facility] [address] [place] [address], [facility] * POCT influenza A/B (10/09/2024 11:38 AM MANAGER EXPORT) Rapid Influenza A Ag Negative Negative, Invalid Rapid Influenza B Ag Negative Negative, Invalid Nasal 10/09/2024 11:3 8 AM MANAGER EXPORT us Brionna Santiago IT SYSTEMS ANALYST CONSULTANT POINT OF CARE TEST ORDERABLES Fi nal Result * POCT rapid strep A (10/09/2024 11:38 AM MANAGER EXPORT) Rapid Strep A, POC Negative Negative Swab 10/09/2024 11:3 8 AM MANAGER EXPORT us Brionna Santiago IT SYSTEMS ANALYST CONSULTANT POINT OF CARE TEST ORDERABLES Fi nal Result * Surgical pathology (10/01/2024 10:30 AM MANAGER EXPORT) Skin, shave biopsy 10/01/2024 10:30 AM MANAGER EXPORT 10/03/2024 8:08 AM MANAGER EXPORT Narrative 10/04/2024 1:28 PM MANAGER EXPORT EPIC results best viewed via link to PDF [facility], [place] [address] [email or web address] Note to Patients: This report may contain [...] 10/03/2024 REPORTED: 10/04/2024 Submitting Physician Information: Paula Page [facility], [address] [place] [address], DERMATOPATHOLOGY REPORT RESULTS DIAGNOSIS: SKIN, LEFT MEDIAL [...] than those at the time of procedure. dh/mat ICD-9 A; ZSD.407 Clerical Data A; 62331 The characteristics of special, immunohistochemical, and immunofluorescence stains and in-situ hybridization tests performed by the [facility] were deemed acceptable in ongoing quality assurance manager measures and in compliance with regulations drawn from the Clinical Laboratory Improvement Act ey9905 (CLIA '88). Control reactions for all stains performed were deemed adequate and appropriate by a pathologist prior to evaluation of patient tissue. Some diagnoses were rendered with the assistance of laboratory-developed tests utilizing analyte-specific reagents; the performance characteristic of these tests were determined by [facility] and are not cleared or approved by the [place] Food an Drug administration. Laboratory developed test may only be performed in a facility that is certified by the [facility] as a high-complexity laboratory under CLIA '88. These tests are used for clinical purposes and are not investigational. us Notinfile Unknown LAB PATHOLOGY ORDERABLES Final Result from Last 3 Months Insurance [facility] H[facility]/PPO Address: [facility] [id number] [place] [id number] [facility] [employer] [facility] [employer]/PPO Address: [place] [phone] [place] [id number] [facility] [employer] [facility] [employer]/PPO Address: [place] [id number] [place] [address] Care Teams Tomato Paste Maker Relationship Specialty Start Date End Date Reuben Duvall MD [address] [address] PCP - General Family Medicine 01/19/23
--- NOTE | 2024-11-17 10:39 | ED_ITS ---
HPI - URI/Sore Throat General Chief Complaint: Upper Respiratory Infection Stated Complaint: poss sinus infection Time Seen by Provider: 11/17/24 10:39 Source: patient, RN notes reviewed and old records reviewed Mode of arrival: ambulatory Limitations: no limitations History of Present Illness HPI Narrative: patient presents with complaints of sinus pain and pressure that began about 12 days ago. He has been taking multiple yuzi-ifb-qefqzat medications with poor relief. He does have a history of hypertension, states that he has not had a primary for approximately 1 year, so has not been taking antihypertensive medications. Additionally, he has been using medications that contain Sudafed. He denies any chest pain or shortness breath. He denies any injury or trauma. He voices no other concerns or complaints today. Related Data Allergies Allergy/AdvReac Type Severity Reaction Status Date / Time No Known Allergies Allergy Verified 11/17/24 10:31 Review of Systems Review of Systems: All systems reviewed & are unremarkable except as noted in HPI and below Constitutional: Constitutional: Reports no additional constitutional complaints, Reports headache(s) and Reports lethargy ENT: Reports system reviewed and no additional complaints, except as documented, Reports otalgia, Reports nasal congestion, Reports nasal discharge, Reports sinus pressure and Reports sore throat Cardiovascular: Cardiovascular: Reports no additional cardiovascular complaints Respiratory: Respiratory: Reports no additional respiratory complaints Gastrointestinal: Gastrointestinal: Reports no additional gastrointestinal complaints PMFSH Comments At the time of my signature, I reviewed and agree with the nursing past medical, surgical, social, and family history. There is no relevant family history pertinent to the patient complaint. Exam Const: General: cooperative, no acute distress, alert and awake Orientation/consciousness: oriented to person, oriented to place and oriented to time HENMT: Head: normal to inspection Ears: TM abnormal with fluid behind the TM bilateral Face/Nose/Sinus: sinus tenderness Resp: Effort & Inspection: normal respiratory effort and able to speak in complete sentences Auscultation: clear to auscultation bilaterally, no crackles, no rales, no rhonchi and no wheezes Cardio: Palpation: normal PMI Rate: regular rate Rhythm: regular rhythm Heart sounds: S1 normal heart sound present and S2 normal heart sound present Neuro: General: oriented to person, oriented to place and oriented to time Cranial nerves: Yes CN's II-XII intact bilaterally Psych: Appearance: grossly normal Thought process: Normal thought process present Insight: Good insight present (Psych) Judgement: Good judgement present (Psych) Course Course Level of Care: Express Care Visit Vital Signs Vital signs: Vital Signs Temperature 99.3 F 11/17/24 10:27 Pulse Rate 89 11/17/24 10:27 Respiratory Rate 20 11/17/24 10:27 Blood Pressure 161/93 H 11/17/24 10:27 Pulse Oximetry 100 11/17/24 10:27 Oxygen Delivery Room Air 11/17/24 10:27 Temperature 99.3 F 11/17/24 10:27 Pulse Rate 89 11/17/24 10:27 Respiratory Rate 20 11/17/24 10:27 Blood Pressure 161/93 H 11/17/24 10:27 Pulse Oximetry 100 11/17/24 10:27 Oxygen Delivery Room Air 11/17/24 10:27 Reviewed MDM - URI/Sore Throat MDM Narrative Medical decision making narrative: History and exam consistent with sinusitis. Patient is nontoxic appearing, stable for discharge home on p.o. antibiotic therapy with steroid burst. He verbalizes understanding that he needs to avoid medications that contain Sudafed. He is requesting a list of primary care providers with which to follow-up. Emergency department precautions discussed. Discharge instructions reviewed with patient, as well as provided in writing per nursing staff. The instructions also include specific and strict return/GO TO THE ER as well as f/u information. All questions have been answered, and the patient deny any further questions with discharge and discharge plan. Some parts of this dictation were generated by voice recognition software and may contain typographical and/or grammatical inaccuracies. Differential Diagnosis Differential diagnosis: Likely upper respiratory infection, otitis media, sinusitis and viral infection Medical Records Attestation: I reviewed the patient's medical records. Discharge Plan Discharge Clinical Impression: Sinusitis Qualifiers: Sinusitis location: maxillary Chronicity: acute Recurrence: not specified as recurrent Qualified Code(s): J01.00 - Acute maxillary sinusitis, unspecified Patient Disposition: Home, Self-Care Condition: Stable Instructions: Antibiotic Form, Sinusitis (ED) Additional Instructions: Take medications as prescribed. Follow up with primary care provider as soon as possible. Emergency department for any new or worse symptoms. Blood pressure today is elevated at 161/93. Normal blood pressure is 120/80. Please avoid any medications that contain Sudafed, this will make your blood pressure higher Patient Language: Bhutanese Prescriptions: New amoxicillin-pot clavulanate 875-125 mg tablet 1 tablet PO Q12H Qty: 14 0RF prednisone 50 mg tablet 50 mg PO DAILY Qty: 5 0RF Follow-up/Referrals: PHYSICIAN,LABORER CONSTRUCTION OR LE[facility]ANG [Primary Care Provider] - Time of Disposition: 11:00
== END 2024-11-17 11:04 | disposition home or self-care (01) ==
PROVIDERS: Emergency Provider Nurse Practitioner Family
DX: J01.00 Acute maxillary sinusitis, unspecified (principal); I10 Essential (primary) hypertension
CPT/HCPCS: 99203; G0463